=== PATIENT | female | born 1970 | race Caucasian/White ===

== ENCOUNTER 2019-05-08 07:09 | Day surgery (SDC) | payer BC ==
[2019-05-08] VITALS (8 sets, daily range): BP systolic 110–147; BP diastolic 62–88
[~2019-05-08] VITALS: Ht 157.5 cm; Wt 75.0 kg
[~2019-05-08 07:09] MED LIST: BACL10TA PO; DIPH25CA83 PO; ESCI5TAB PO; ESTR1TAB23 SL; HYDR12.5 PO; LEVO175T2 PO; ONDA4TAB6 PO; PROG100C11 PO; TRAZ150T78 PO; cefazolin/dext.iso 2gm/50ml 50 ML IV ONE; famotidine 20mg tablet PO ONE; ringers solution, lacted 1,000 ML IV SCH
[2019-05-08] MEDS ORDERED: proCHLORperazine 10 MG/2 ml inj IV PRN (07:55)
[2019-05-08] MEDS ORDERED: ondansetron/PF 4mg/2ml inj IV PRN (07:55)
[2019-05-08] MEDS ORDERED: meperidine/PF 25mg/ml syringe IV PRN ×2 (07:55)
[2019-05-08] MEDS ORDERED: morphine 4 MG/ML inj SYRINge IV PRN ×2 (07:55)
[2019-05-08] MEDS ORDERED: ringers solution, lacted 1,000 ML IV SCH (07:55)
[2019-05-08 08:10] LABS: BASOPHILS % (AUTO) 1.3 % (0-1); EOSINOPHILS # (AUTO) 0.1 X10'3 (0-0.9); EOSINOPHILS % (AUTO) 3.4 % (0-6); LYMPHOCYTES # (AUTO) 0.9 X10'3 (1.1-4.8); LYMPHOCYTES % (AUTO) 22.6 % (21-51); MEAN CORPUSCULAR HEMOGLOBIN 28.4 PG (27.0-31.0); MEAN CORPUSCULAR VOLUME 83.4 FL (78-98); MEAN PLATELET VOLUME 8.3 FL (7.4-10.4); MONOCYTES # (AUTO) 0.4 X10'3 (0-0.9); NEUTROPHILS # (AUTO) 2.5 X10'3 (1.8-7.7); NEUTROPHILS % (AUTO) 63.7 % (42-75); PRE OP HEMATOCRIT 34.3 % (35.0-45.0); PRE OP HEMOGLOBIN 11.7 g/dL (12.0-16.0); PRE OP PLATELET COUNT 244 X10'3 (140-440); RED BLOOD COUNT 4.12 X10'6 (4.20-5.60); RED CELL DISTRIBUTION WIDTH 13.9 % (11.5-14.5)
[2019-05-08] MEDS ORDERED: LIDOcaine 1% 30ml preserv. free vial ONE (08:15)
[2019-05-08 08:16] LABS: CLARITY,URINE SLIGHTLY CLOUDY (Clear); COLOR,URINE YELLOW (Yellow); GLUCOSE, URINE NEGATIVE (Neg); KETONES,URINE TRACE mg/dl (Neg); LEUKOCYTE ESTERASE ,URINE NEGATIVE (Neg); NITRITES, URINE NEGATIVE (Neg); OCCULT BLOOD,URINE TRACE-INTACT (Neg); PROTEIN,URINE NEGATIVE (Neg)
[2019-05-08] MEDS ORDERED: BUPIVAcaine/PF 2.5 mg/ml (0.25%) 30ml vial ONE (08:16)
[2019-05-08 08:30] LABS: ALBUMIN 3.3 G/DL (3.4-5.0); ALBUMIN/GLOBULIN RATIO 0.9 (1.1-1.5); ALKALINE PHOSPHATASE 56 IU/L (46-116); BLOOD UREA NITROGEN 8 MG/DL (7-18); BUN/CREATININE RATIO 9.5 (6.6-38.0); CALCIUM 8.3 MG/DL (8.5-10.1); CHLORIDE 104 MMOL/L (99-107); CREATININE 0.84 MG/DL (0.40-0.90); PRE OP ALT 20 U/L (30-65); PRE OP ANION GAP 11 (8-16); PRE OP AST 16 U/L (10-37); PRE OP BILIRUB, TOTAL 0.6 MG/DL (0.0-1.0); PRE OP GLUCOSE 81 MG/DL (70-104); PRE OP SODIUM 142 MMOL/L (135-145); TOTAL CARBON DIOXIDE 27.5 MMOL/L (24-32); TOTAL PROTEIN 6.8 G/DL (6.4-8.2); eGFR 72 ML/MIN
[2019-05-08 08:32] LABS: PRE OP POTASSIUM 3.1 MMOL/L (3.4-5.1)
[2019-05-08 08:33] LABS: UA COLLECTION TYPE CLN CATCH MIDSTREAM
[2019-05-08 08:35] LABS: BACTERIA,URINE FEW /HPF (Neg); MUCUS STRANDS MANY /LPF (Neg); SQUAMOUS EPITHELIAL CELL,UR MANY /LPF (FEW); WBC,URINE 0-4 /HPF (0-4)
[2019-05-08] MEDS ORDERED: fentaNYL/PF 50MCG/1 ML 2ML syringe ONE ×2 (08:38→09:15)
[2019-05-08] MEDS ORDERED: midazolam 2 mg/2 ml injection ONE (08:39)
[2019-05-08] MEDS ORDERED: sevoflurane 250ml liquid IH ONE (08:41)
[2019-05-08] MEDS ORDERED: LIDOcaine 2% (20mg/ml) 5ml vial ONE (08:56)
[2019-05-08] MEDS ORDERED: rocuronium 10mg/ml inj IV ONE (08:56)
[2019-05-08] MEDS ORDERED: glycopyrrolate 0.2mg/ml inj ONE (08:56)
[2019-05-08] MEDS ORDERED: propofol inj 20 ML IV ONE (08:56)
[2019-05-08] MEDS ORDERED: ondansetron/PF 4mg/2ml inj ONE (08:56)
[2019-05-08] MEDS ORDERED: dexamethasone sod phosphate 4mg/ml inj. ONE (08:56)
[2019-05-08] MEDS ORDERED: neostigmine methylsulfate 1 MG/ML 10ml vial ONE (08:56)
--- NOTE | 2019-05-08 09:37 | NUR ---
Received from OR via , accompanied by Anesthesiologist DR HUIZAR and report given by Anesthesiolgist. AWAKENS TO VOICE. VITALS STABLE. DRESSING DI. KESHA PAIN.
[2019-05-08] MEDS: meperidine/PF 25mg/ml syringe IV PRN ×2 (09:57→10:06)
[2019-05-08] MEDS ORDERED: acetaminophen w/codeine (30MG) #3 tablet PO ONE (10:35)
--- NOTE | 2019-05-08 10:47 | NUR ---
AWAKE AND ORIENTED. VITALS STABLE. DRESSING DI. STATES PAIN IMPROVING. HOME WITH HER DAUGHTER AT THIS TIME.
== END 2019-05-08 10:47 | disposition home or self-care (01) ==
LOC: PRE-OP 07:09 → PAS 10:47
PROVIDERS: ATTEND Surgery
DX: R59.1 Generalized enlarged lymph nodes (principal); I89.8 Other specified noninfective disorders of lymphatic vessels and lymph nodes; G43.909 Migraine, unspecified, not intractable, without status migrainosus; I10 Essential (primary) hypertension; F41.9 Anxiety disorder, unspecified; F32.9 Major depressive disorder, single episode, unspecified; Z98.84 Bariatric surgery status; Z90.49 Acquired absence of other specified parts of digestive tract; Z98.890 Other specified postprocedural states; Z87.891 Personal history of nicotine dependence; Z79.899 Other long term (current) drug therapy
CPT/HCPCS: 36415; 38500; 80053; 81001; 85025; 93005; J0780; J1100; J2001; J2175; J2250; J2405; J2704; J2710; J3010; J3490; A4215; A4618; A6449; A7000; J7120

== ENCOUNTER 2020-09-15 06:52 | Inpatient (IN) | payer BC ==
[~2020-09-15] VITALS: Ht 157.5 cm; Wt 59.1 kg
[2020-09-15] VITALS (17 sets, daily range): BP systolic 97–138; BP diastolic 58–75
[~2020-09-15 06:52] MED LIST changes: -cefazolin/dext.iso 2gm/50ml 50 ML IV ONE; -famotidine 20mg tablet PO ONE; -ringers solution, lacted 1,000 ML IV SCH
[2020-09-15] MEDS ORDERED: ondansetron/PF 4mg/2ml inj IV ONE ×2 (07:15→07:55)
[2020-09-15 07:33] LABS: BASOPHILS # (AUTO) 0.1 X10'3 (0-0.2); BASOPHILS % (AUTO) 0.4 % (0-1); EOSINOPHILS % (AUTO) 0.2 % (0-6); HEMATOCRIT 41.2 % (35.0-45.0); HEMOGLOBIN 13.9 g/dl (12.0-16.0); LYMPHOCYTES # (AUTO) 1.7 X10'3 (1.1-4.8); LYMPHOCYTES % (AUTO) 11.2 % (21-51); MEAN CORPUSCULAR HEMOGLOBIN 28.8 PG (27.0-31.0); MEAN CORPUSCULAR HGB CONC 33.8 g/dL (33.0-36.5); MEAN CORPUSCULAR VOLUME 85.1 FL (78-98); MONOCYTES # (AUTO) 0.8 X10'3 (0-0.9); MONOCYTES % (AUTO) 5.3 % (2-12); NEUTROPHILS # (AUTO) 12.8 X10'3 (1.8-7.7); NEUTROPHILS % (AUTO) 82.9 % (42-75); PLATELET COUNT 428 X10'3 (140-440); RED BLOOD COUNT 4.84 X10'6 (4.20-5.60); RED CELL DISTRIBUTION WIDTH 14.6 % (11.5-14.5); WHITE BLOOD COUNT 15.5 X10'3 (4.5-11.0)
[2020-09-15] MEDS ORDERED: normal saline 1000ml 1,000 ML IV ONE (07:45)
[2020-09-15] MEDS ORDERED: pantoprazole 40 MG vial IV ONE (07:45)
[2020-09-15] MEDS: diatr meglu/diatrizoate 30ml oral sol.-(3 dose) bottle PO SCH ×2 (07:50→08:35)
[2020-09-15 07:52] LABS: ALANINE AMINOTRANSFERASE 18 U/L (12-78); ALBUMIN/GLOBULIN RATIO 1.1 (1.1-1.5); ALKALINE PHOSPHATASE 69 IU/L (46-116); ANION GAP 11 (8-16); ASPARTATE AMINO TRANSFERASE 15 U/L (10-37); BILIRUBIN,TOTAL 0.6 MG/DL (0.1-1.0); BLOOD UREA NITROGEN 19 MG/DL (7-18); BUN/CREATININE RATIO 15.1 (6.6-38.0); CALCIUM 9.1 MG/DL (8.5-10.1); CHLORIDE 103 MMOL/L (99-107); CREATININE 1.26 MG/DL (0.40-0.90); GLUCOSE 111 MG/DL (70-104); LIPASE 139 U/L (73-393); POTASSIUM 3.6 MMOL/L (3.5-5.1); SODIUM 142 MMOL/L (135-145); TOTAL CARBON DIOXIDE 27.6 MMOL/L (24-32); TOTAL PROTEIN 7.8 G/DL (6.4-8.2); eGFR 45 ML/MIN
[2020-09-15] MEDS ORDERED: morphine 4 MG/ML inj SYRINge IV ONE (07:55)
[2020-09-15] MEDS ORDERED: iohexol 300mg/ml 100ml inj. ONE (08:08)
[2020-09-15] MEDS ORDERED: proCHLORperazine 10 MG/2 ml inj IV ONE (08:10)
[2020-09-15 08:26] LABS: HCG SERUM QL NEGATIVE
[2020-09-15] MEDS ORDERED: LORazepam 2 mg/ml vial IV ONE ×2 (09:20→10:45)
[2020-09-15 09:48] LABS: URINE HCG NEGATIVE (NEG)
[2020-09-15 09:49] LABS: CLARITY,URINE CLEAR (Clear); COLOR,URINE YELLOW (Yellow); GLUCOSE, URINE NEGATIVE (Neg); KETONES,URINE TRACE mg/dl (Neg); LEUKOCYTE ESTERASE ,URINE NEGATIVE (Neg); NITRITES, URINE NEGATIVE (Neg); OCCULT BLOOD,URINE TRACE-INTACT (Neg); PH,URINE 6.5 (4.8-8.0); PROTEIN,URINE NEGATIVE (Neg); UROBILINOGEN,URINE 0.2 E.U/dL (0.2-1.0)
[2020-09-15 09:54] LABS: UA COLLECTION TYPE CLN CATCH MIDSTREAM
[2020-09-15 10:06] LABS: BACTERIA,URINE 1+ /HPF (Neg); RBC,URINE 0-2 /HPF (0-2); SQUAMOUS EPITHELIAL CELL,UR MODERATE /LPF (FEW); WBC,URINE 0-4 /HPF (0-4)
[2020-09-15] MEDS ORDERED: LIDOcaine Viscous 15ml cup MM PRN (10:55)
[2020-09-15] MEDS ORDERED: fentaNYL/PF 50MCG/1 ML 2ML syringe ONE ×2 (12:56→13:59)
[2020-09-15] MEDS ORDERED: midazolam 2 mg/2 ml injection ONE (12:56)
[2020-09-15] MEDS ORDERED: sevoflurane 250ml liquid IH ONE (13:00)
[2020-09-15] MEDS ORDERED: dexamethasone sod phosphate 4mg/ml inj. ONE (13:00)
[2020-09-15] MEDS ORDERED: propofol inj 20 ML IV ONE (13:00)
[2020-09-15] MEDS ORDERED: rocuronium 10mg/ml inj IV ONE (13:00)
[2020-09-15] MEDS ORDERED: LIDOcaine 2% (20mg/ml) 5ml vial ONE (13:00)
[2020-09-15] MEDS ORDERED: BUPIVACAINE liposomal/PF 13.3 MG/ML vial IM ONE (13:36)
[2020-09-15] MEDS ORDERED: BUPIVAcaine/PF 2.5mg/ml (0.25%) 10ml vial ONE (13:36)
[2020-09-15] MEDS ORDERED: HYDROcodone/acetaminophen 5mg/325mg tablet PO PRN (13:55)
[2020-09-15] MEDS ORDERED: ondansetron/PF 4mg/2ml inj IV PRN ×3 (13:55→15:45)
[2020-09-15] MEDS: potassium CL 20mEq in D5-1/2NS 1,000 ML IV SCH ×2 (13:55→21:55)
[2020-09-15] MEDS ORDERED: meperidine/PF 25mg/ml syringe ONE (14:14)
--- NOTE | 2020-09-15 14:17 | NUR ---
Received from OR via hospital bed, accompanied by Anesthesiologist Dr. Cr and report given by Anesthesiolgist. 20g piv to right AC. Dressing to abdomen with scant amount of bright red drainage, Dr. Cr aware. Patient in extreme pain, demerol given emergently.
[2020-09-15] MEDS ORDERED: meperidine/PF 25mg/ml syringe IV ONE (14:25)
[2020-09-15] MEDS ORDERED: ringers solution, lacted 1,000 ML IV SCH (14:30)
[2020-09-15] MEDS ORDERED: meperidine/PF 25mg/ml syringe IV PRN ×2 (14:30)
[2020-09-15] MEDS ORDERED: HYDROmorphone/PF 0.2 MG/ML SYRINGE IV PRN ×2 (14:30)
[2020-09-15] MEDS ORDERED: MELO-102 PO (14:31)
[2020-09-15] MEDS ORDERED: AMLO2.5T5 PO (14:31)
[2020-09-15] MEDS ORDERED: PANT40TA54 PO (14:31)
[2020-09-15] MEDS ORDERED: glycopyrrolate 0.2mg/ml inj ONE (14:31)
[2020-09-15] MEDS ORDERED: CITA40TA17 PO (14:31)
[2020-09-15] MEDS ORDERED: neostigmine methylsulfate 1 MG/ML 10ml vial ONE (14:31)
[2020-09-15] MEDS ORDERED: LEVO75TA7 PO (14:31)
[2020-09-15] MEDS ORDERED: ESTR1TAB28 PO (14:31)
[2020-09-15] MEDS ORDERED: ondansetron/PF 4mg/2ml inj ONE (14:31)
--- NOTE | 2020-09-15 15:26 | NUR ---
Patient in room . I have received report from Elina HOANGpower and recovery superintendent and had the opportunity to ask questions and assume patient care.
--- NOTE | 2020-09-15 15:40 | NUR ---
Report called to receiving nurse, Yvette. Transferred via hospital bed to room 355B Belongings . Special Issues communicated to receiving nurse. Dressing with small amount of drainage, circled. Patient states pain is there but "not bad". Urine output 80ml. LR running at 100ml/hr.ice chips tolerated well.
[2020-09-15] MEDS ORDERED: acetaminophen 325mg tablet PO PRN (15:45)
[2020-09-15] MEDS ORDERED: magnesium hydroxide 30ml (MOM) UD suspension PO PRN (15:45)
[2020-09-15] MEDS ORDERED: morphine 2 MG/ML inj. syringe IV PRN (15:45)
[2020-09-15] MEDS ORDERED: mag hydrox/Alum hydrox/simeth 30ml oral suspension PO PRN (15:45)
[2020-09-15] MEDS: normal saline 1000ml 1,000 ML IV SCH (15:45)
--- NOTE | 2020-09-15 18:28 | NUR ---
Problems reprioritized. Patient report given, questions answered & plan of care reviewed with Jamari Figueroa .
--- NOTE | 2020-09-15 18:29 | NUR ---
I have received report from Yvette HOANG and had the opportunity to ask questions and assume patient care.
[2020-09-15] MEDS: estradiol 1mg tablet PO SCH (19:09)
[2020-09-15] MEDS: amLODIPine 2.5mg tablet PO SCH (19:10)
[2020-09-15] MEDS: morphine 2 MG/ML inj. syringe IV PRN (19:22)
[2020-09-15] MEDS: LORazepam 1 MG tablet PO PRN (21:37)
[2020-09-15] MEDS: HYDROcodone/acetaminophen 10/325mg tab PO PRN (22:29)
[2020-09-16] VITALS: BP 108/50
[2020-09-16] MEDS: normal saline 1000ml 1,000 ML IV SCH ×3 (01:45→19:12)
[2020-09-16 04:00] VITALS: BP 106/72
[2020-09-16] MEDS: potassium CL 20mEq in D5-1/2NS 1,000 ML IV SCH ×3 (05:44→21:55)
[2020-09-16 06:16] LABS: ALBUMIN 2.9 G/DL (3.4-5.0); ANION GAP 6 (8-16); BLOOD UREA NITROGEN 10 MG/DL (7-18); BUN/CREATININE RATIO 10.1 (6.6-38.0); CALCIUM 8.5 MG/DL (8.5-10.1); CHLORIDE 106 MMOL/L (99-107); CREATININE 0.99 MG/DL (0.40-0.90); GLUCOSE 85 MG/DL (70-104); POTASSIUM 3.5 MMOL/L (3.5-5.1); SODIUM 142 MMOL/L (135-145); TOTAL CARBON DIOXIDE 30.4 MMOL/L (24-32); eGFR 60 ML/MIN
[2020-09-16 06:19] LABS: BASOPHILS # (AUTO) 0.1 X10'3 (0-0.2); BASOPHILS % (AUTO) 0.7 % (0-1); EOSINOPHILS # (AUTO) 0.1 X10'3 (0-0.9); HEMATOCRIT 32.5 % (35.0-45.0); HEMOGLOBIN 10.9 g/dl (12.0-16.0); LYMPHOCYTES # (AUTO) 1.4 X10'3 (1.1-4.8); MEAN CORPUSCULAR HEMOGLOBIN 28.9 PG (27.0-31.0); MEAN CORPUSCULAR HGB CONC 33.6 g/dL (33.0-36.5); MEAN CORPUSCULAR VOLUME 85.8 FL (78-98); MONOCYTES # (AUTO) 0.7 X10'3 (0-0.9); MONOCYTES % (AUTO) 7.2 % (2-12); NEUTROPHILS # (AUTO) 7.1 X10'3 (1.8-7.7); NEUTROPHILS % (AUTO) 76.1 % (42-75); PLATELET COUNT 285 X10'3 (140-440); RED BLOOD COUNT 3.79 X10'6 (4.20-5.60); RED CELL DISTRIBUTION WIDTH 14.2 % (11.5-14.5); WHITE BLOOD COUNT 9.3 X10'3 (4.5-11.0)
--- NOTE | 2020-09-16 06:38 | NUR ---
Problems reprioritized. Patient report given, questions answered & plan of care reviewed with Corinna HOANG.
--- NOTE | 2020-09-16 07:01 | NUR ---
Patient in room ALE 355. I have received report from Sun HOANG and had the opportunity to ask questions and assume patient care.
[2020-09-16 07:32] VITALS: BP 109/72
[2020-09-16] MEDS: levoTHYROXINE 75mcg tablet PO SCH (09:19)
[2020-09-16] MEDS: pantoprazole 40mg Tablet.DR PO SCH (09:20)
[2020-09-16] MEDS: amLODIPine 2.5mg tablet PO SCH ×2 (09:20→19:09)
[2020-09-16] MEDS: citalopram 20mg tablet PO SCH (09:21)
[2020-09-16] MEDS: enoxaparin 40mg/0.4ml syringe SUBCUT SCH (09:23)
[2020-09-16] MEDS: estradiol 1mg tablet PO SCH ×2 (10:09→19:09)
[2020-09-16] MEDS: HYDROcodone/acetaminophen 10/325mg tab PO PRN ×2 (10:33→19:10)
[2020-09-16 11:00] VITALS: BP 97/48
--- NOTE | 2020-09-16 18:59 | NUR ---
Problems reprioritized. Patient report given, questions answered & plan of care reviewed with Sun HOANG.
[2020-09-16 19:00] VITALS: BP 125/75
[2020-09-16] MEDS: LORazepam 1 MG tablet PO PRN (20:30)
--- NOTE | 2020-09-16 21:11 | NUR ---
I have received report from Curtis HOANG and had the opportunity to ask questions and assume patient care.
[2020-09-16] MEDS: morphine 2 MG/ML inj. syringe IV PRN (22:19)
[2020-09-17] VITALS: BP 117/69
[2020-09-17] MEDS: HYDROcodone/acetaminophen 10/325mg tab PO PRN ×3 (01:25→18:39)
[2020-09-17] MEDS: normal saline 1000ml 1,000 ML IV SCH (04:25)
[2020-09-17] MEDS: morphine 2 MG/ML inj. syringe IV PRN ×2 (04:36→13:18)
[2020-09-17] MEDS: potassium CL 20mEq in D5-1/2NS 1,000 ML IV SCH (05:55)
[2020-09-17 06:21] LABS: BASOPHILS # (AUTO) 0.1 X10'3 (0-0.2); BASOPHILS % (AUTO) 1.1 % (0-1); EOSINOPHILS # (AUTO) 0.3 X10'3 (0-0.9); EOSINOPHILS % (AUTO) 5.6 % (0-6); HEMATOCRIT 28.9 % (35.0-45.0); HEMOGLOBIN 9.8 g/dl (12.0-16.0); LYMPHOCYTES # (AUTO) 1.1 X10'3 (1.1-4.8); LYMPHOCYTES % (AUTO) 23.2 % (21-51); MEAN CORPUSCULAR VOLUME 85.2 FL (78-98); MONOCYTES # (AUTO) 0.4 X10'3 (0-0.9); MONOCYTES % (AUTO) 8.3 % (2-12); NEUTROPHILS % (AUTO) 61.8 % (42-75); PLATELET COUNT 228 X10'3 (140-440); RED BLOOD COUNT 3.39 X10'6 (4.20-5.60); RED CELL DISTRIBUTION WIDTH 14.3 % (11.5-14.5); WHITE BLOOD COUNT 4.8 X10'3 (4.5-11.0)
[2020-09-17 06:42] LABS: ALBUMIN 2.6 G/DL (3.4-5.0); ANION GAP 7 (8-16); BLOOD UREA NITROGEN 4 MG/DL (7-18); BUN/CREATININE RATIO 5.8 (6.6-38.0); CALCIUM 7.8 MG/DL (8.5-10.1); CHLORIDE 107 MMOL/L (99-107); CREATININE 0.69 MG/DL (0.40-0.90); GLUCOSE 73 MG/DL (70-104); SODIUM 143 MMOL/L (135-145); eGFR 90 ML/MIN
[2020-09-17 07:00] VITALS: BP 111/65
--- NOTE | 2020-09-17 07:15 | NUR ---
pt was vaping in the room. pt educated on not vaping in the hospital. vape is stored at charger tester desk with pt sticker
[2020-09-17] MEDS ORDERED: potassium Cl 20 mEq SR tablet PO PRN ×2 (07:20)
[2020-09-17] MEDS ORDERED: magnesium 4gm in 100ml NS 100 ML IV PRN (07:20)
[2020-09-17] MEDS ORDERED: magnesium Cl slow-release 64mg tablet PO PRN (07:20)
[2020-09-17] MEDS ORDERED: potassium Cl 40MEQ/1/2NS 520ml 520 ML IV PRN (07:20)
[2020-09-17] MEDS: levoTHYROXINE 75mcg tablet PO SCH (07:46)
[2020-09-17] MEDS: citalopram 20mg tablet PO SCH (07:47)
[2020-09-17] MEDS: estradiol 1mg tablet PO SCH (07:47)
[2020-09-17] MEDS: amLODIPine 2.5mg tablet PO SCH (07:50)
[2020-09-17] MEDS: pantoprazole 40mg Tablet.DR PO SCH (07:52)
[2020-09-17] MEDS: enoxaparin 40mg/0.4ml syringe SUBCUT SCH (07:53)
[2020-09-17] MEDS ORDERED: K and/or MAG REPLACEMENT MC SCH (08:00)
[2020-09-17 08:21] LABS: MAGNESIUM 1.7 MG/DL (1.5-2.4)
[2020-09-17 11:00] VITALS: BP 121/78
--- NOTE | 2020-09-17 11:30 | NUR ---
Patient in room ALE 355b. I have received report from Sun Chavez RN and had the opportunity to ask questions and assume patient care.
--- NOTE | 2020-09-17 11:41 | NUR ---
Problems reprioritized. Patient report given, questions answered & plan of care reviewed with Alina HOANG.
[2020-09-17] MEDS ORDERED: OXYC-145 PO ×2 (16:40→16:42)
--- NOTE | 2020-09-17 18:20 | NUR ---
Patient report given, questions answered & plan of care reviewed with Randi Bryan RN.
--- NOTE | 2020-09-17 18:30 | NUR ---
Patient in room ALE 355. I have received report from GABO HOANG and had the opportunity to ask questions and assume patient care. PATIENT GETTING READY FOR DISCHARGE AFTER DINNER, WAITING FOR HER TO PICK HER UP.
--- NOTE | 2020-09-17 18:45 | NUR ---
DISCHARGE INSTRUCTIONS GIVEN TO PATIENT AND VERBALIZED UNDERSTANDING, DISCHARGE PAPERS SIGNED BY PATIENT.
--- NOTE | 2020-09-17 19:10 | NUR ---
PATIENT LEFT FOR DISCHARGE HOME WITH IN A WHEELCHAIR WITH STAFF TO THE FRONT DOOR.
== END 2020-09-17 19:17 | disposition home or self-care (01) | DRG 344 ==
LOC: ER 06:53 → SUR 3N 13:55
PROVIDERS: ADMIT Surgery; ATTEND Surgery
PROC: 3E0T3BZ Introduction of Anesthetic Agent into Peripheral Nerves and Plexi, Percutaneous Approach (ICD-10-PCS; 2020-09-15)
PROC: BW211ZZ Computerized Tomography (CT Scan) of Abdomen and Pelvis using Low Osmolar Contrast (ICD-10-PCS; 2020-09-15)
PROC: 0DSA0ZZ Reposition Jejunum, Open Approach (ICD-10-PCS; principal; 2020-09-15 13:00)
DX: K56.1 Intussusception (principal); N17.0 Acute kidney failure with tubular necrosis; E03.9 Hypothyroidism, unspecified; R68.2 Dry mouth, unspecified; Z20.822 Contact with and (suspected) exposure to COVID-19; F32.9 Major depressive disorder, single episode, unspecified; F41.9 Anxiety disorder, unspecified; Z87.11 Personal history of peptic ulcer disease; Z98.84 Bariatric surgery status; Z90.49 Acquired absence of other specified parts of digestive tract; E87.6 Hypokalemia
CPT/HCPCS: 96374; 96375; 99285; Z7506; Z7508; 36415; 74018; 74177; 80048; 80053; 81001; 81025; 83690; 83735; 84443; 84703; 85025; 86885; 86900; 86901; 87081; 87635; A4618; A7000; C1758; C9113; C9290; C9803; G0378; J0694; J0780; J1100; J1650; J2001; J2060; J2175; J2250; J2270; J2405; J2704; J2710; J3010; J3480; J3490; J7030; J7120; Q9963; Q9967